=== PATIENT | female | born 1965 | race African-American/Black ===

== ENCOUNTER 2018-10-24 11:37 | Emergency (ER) | payer SELFPAY ==
[2018-10-24 12:35] LABS: Absolute Monocytes 0.5 K/uL (0.1-1.3); Absolute Neutrophil 5.1 K/uL (1.8-8.0); Basophils % 1.2 % (0-1.3)
[2018-10-24 12:48] LABS: Absolute Lymphocytes (CBC) 2.6 K/uL (0.7-4.9); Eosinophils % 5.1 % (0-4.4); Hematocrit 40.1 % (36.0-45.0); Lymphocytes % 29.6 % (15.3-44.8); MPV 9.4 fL (7.6-11.3); Monocytes % 5.9 % (3.3-12.3); RBC Red Blood Cell Count 4.77 M/uL (3.86-4.86)
[2018-10-24 13:01] LABS: Urine Blood 2+ (NEG); Urine Glucose NEGATIVE (NEG); Urine Protein NEGATIVE (NEG); Urine Specific Gravity 1.015 (1.005-1.030); Urine pH 6.5 (5.0-7.0)
[2018-10-24 13:06] LABS: BUN Blood Urea Nitrogen 13 mg/dL (7-18); Bicarbonate 31 mmol/L (21-32); Glucose Level 158 mg/dL (74-106); HDL Cholesterol 71 mg/dL (40-60); LDL Cholesterol, Calculated 131 (<130); Magnesium 2.1 mg/dL (1.8-2.4); Potassium 3.6 mmol/L (3.5-5.1); Sodium Level 140 mmol/L (136-145)
--- NOTE | 2018-10-24 14:48 | ER ---
Nurse's Notes [facility] Name: Soraya Shay Age: 53 yrs Sex: Female : 1965 Arrival Date: 10/24/2018 Time: 11:46 Bed 13 Private MD: Diagnosis: Radiculopathy, cervical region;Hyperlipidemia, unspecified;Hypertension secondary to other renal disorders Presentation: 10/24 11:47 Presenting complaint: Patient states: For several months now I have had numbness and sg heaviness to the left arm the left buttocks and the left leg, it comes and goes, does not have numbness to the face but reports mild swelling to the check and neck with nasal drainage and cough as well, no visual changes, no weakness reported, pt states that she has recently started taking baby aspirin 81 mg every night along with her normal lisinopril 20 mg daily. Transition of care: patient was not received from another setting of care. Onset of symptoms was October 24, 2018. Risk Assessment: Do you want to hurt yourself or someone else? Patient reports no desire to harm self or others. Initial Sepsis Screen: Does the patient meet any 2 criteria? No. Patient's initial sepsis screen is negative. Does the patient have a suspected source of infection? No. Patient's initial sepsis screen is negative. Care prior to arrival: None. 11:47 Method Of Arrival: Ambulatory 11:47 Acuity: DARVIN 3 sg INVENTORY MANAGEMENT SPECIALIST: 14:56 LMP N/A - ss Historical: - Allergies: 11:51 No Known Allergies; sg - Home Meds: 11:51 Aspirin Oral [Active]; lisinopril 20 mg Oral tab 1 tab once daily [Active]; sg - PMHx: 11:51 Hypertension; sg - PSHx: 11:51 Tubal ligation; sg - Immunization history:: Adult Immunizations up to date. - Social history:: Smoking status: Patient/guardian denies using tobacco. - Ebola Screening: : Patient negative for fever greater than or equal to 101.5 degrees Fahrenheit, and additional compatible Ebola Virus Disease symptoms Patient denies exposure to infectious person Patient denies travel to an Ebola-affected area in the 21 days before illness onset No symptoms or risks identified at this time. Screenin:57 Abuse screen: Denies threats or abuse. Denies injuries from another. Nutritional ss screening: No deficits noted. Tuberculosis screening: Never had TB. Fall Risk None identified. Assessment: 11:47 General: Appears in no apparent distress. comfortable, Behavior is calm, cooperative. rb1 Neuro: Level of Consciousness is awake, alert, obeys commands, Oriented to person, place, time, situation. Neuro: Reports numbness in left arm and left leg. Cardiovascular: Capillary refill < 3 seconds is brisk in bilateral fingers. Respiratory: Airway is patent Respiratory effort is even, unlabored, Respiratory pattern is regular, symmetrical. GI: No signs and/or symptoms were reported involving the gastrointestinal system. : No signs and/or symptoms were reported regarding the genitourinary system. Derm: Skin is dry, Skin is normal, Skin temperature is warm. 11:47 Pain: Complains of pain in left leg and left arm Pain currently is 4 out of 10 on a rb1 pain scale. 12:45 Reassessment: Patient appears in no apparent distress at this time. Patient and/or rb1 family updated on plan of care and expected duration. Pain level reassessed. Patient is alert, oriented x 3, equal unlabored respirations, skin warm/dry/pink. 13:44 Reassessment: Patient appears in no apparent distress at this time. No changes from rb1 previously documented assessment. 14:44 Reassessment: Patient appears in no apparent distress at this time. Patient and/or rb1 family updated on plan of care and expected duration. Pain level reassessed. Patient is alert, oriented x 3, equal unlabored respirations, skin warm/dry/pink. Vital Signs: 11:51 BP 144 / 82; Pulse 87; Resp 16; Temp 98.2; Pulse Ox 100% on R/A; Pain 2/10; sg 12:50 BP 148 / 77; Pulse 74; Resp 14; Temp 98.3(O); Pulse Ox 99% on R/A; Pain 2/10; rb1 13:50 BP 122 / 64; Pulse 75; Resp 12; Temp 98.4(O); Pulse Ox 100% on R/A; Pain 1/10; rb1 14:40 BP 126 / 71; Pulse 69; Resp 15; Temp 98.5(O); Pulse Ox 100% on R/A; Pain 1/10; rb1 ED Course: 11:46 Patient arrived in ED. sg 11:48 Gerson Mattson MD is Attending Physician. ps1 11:48 Ghislaine Chirinos, RN is Primary Nurse. rb1 11:49 Triage completed. sg 11:49 Arm band placed on. sg 12:23 Inserted saline lock: 20 gauge in right antecubital area, using aseptic technique. la1 Blood collected. 12:37 EKG done, by ED staff, reviewed by Gerson Mattson MD. 3 12:47 Urine collected: clean catch specimen, cloudy. 3 14:56 No provider procedures requiring assistance completed. IV discontinued, intact, ss bleeding controlled, No redness/swelling at site. Pressure dressing applied. 14:57 Patient has correct armband on for positive identification. Bed in low position. Call ss light in reach. Administered Medications: No medications were administered Point of Care Testing: Blood Glucose: 12:23 Blood Glucose: 184 mg/dL; la1 Ranges: Outcome: 14:47 Discharge ordered by MD. ps1 14:56 Discharged to home ambulatory, with family. 14:56 Condition: good 14:56 Discharge instructions given to patient, family, Instructed on discharge instructions, follow up and referral plans. medication usage, Demonstrated understanding of instructions, follow-up care, medications, Prescriptions given X 3. 14:57 Patient left the ED. Signatures: Roger Donnelly RN NATALIO Dina Suggs RN RN Azael Cade RN RN la1 Ghislaine Chirinos, RN RN [facility] Holly Gordon 3 Gerson Mattson MD MD ps1
--- NOTE | 2018-10-24 14:48 | EDPHYS ---
Physician Documentation [facility] Name: Soraya Shay Age: 53 yrs Sex: Female : 1965 Arrival Date: 10/24/2018 Time: 11:46 Bed 13 Private MD: ED Physician Gerson Mattson HPI: 10/24 12:17 This 53 yrs old Black Female presents to ER via Ambulatory with complaints of Numbness ps1 - for several months to the left arm and left buttocks and left leg. 12:17 Patient states that for 2 months the patient has non-specific pain localized to left ps1 arm that stops at the wrist and lower back pain that radiates down the left leg. The pain is improved with extending her arm or raising the arm over her head. The patient states that she takes Excedrin regularly as well as taking aspirin. She states that she usually takes it for migraines and works. She has no focal neurologic deficits. She has FROM and no weakness. Hx of HTN and treated with lisinopril. . CLINICAL ADVISOR: 14:56 LMP N/A - ss Historical: - Allergies: 11:51 No Known Allergies; sg - Home Meds: 11:51 Aspirin Oral [Active]; lisinopril 20 mg Oral tab 1 tab once daily [Active]; sg - PMHx: 11:51 Hypertension; sg - PSHx: 11:51 Tubal ligation; sg - Immunization history:: Adult Immunizations up to date. - Social history:: Smoking status: Patient/guardian denies using tobacco. - Ebola Screening: : Patient negative for fever greater than or equal to 101.5 degrees Fahrenheit, and additional compatible Ebola Virus Disease symptoms Patient denies exposure to infectious person Patient denies travel to an Ebola-affected area in the 21 days before illness onset No symptoms or risks identified at this time. ROS: 12:17 Constitutional: Negative for fever, chills, and weight loss, Eyes: Negative for injury, ps1 pain, redness, and discharge. 12:17 Cardiovascular: Negative for chest pain, palpitations, and edema, Respiratory: Negative for shortness of breath, cough, wheezing, and pleuritic chest pain, Abdomen/GI: Negative for abdominal pain, nausea, vomiting, diarrhea, and constipation, Back: Negative for injury and pain, MS/Extremity: Negative for injury and deformity, Skin: Negative for injury, rash, and discoloration, Psych: Negative for depression, anxiety, suicide ideation, homicidal ideation, and hallucinations. 12:17 ENT: Positive for nose bleed. 12:17 Neuro: Positive for paresthesia in upper and lower extremity on left. Exam: 12:17 Constitutional: This is a well developed, well nourished patient who is awake, alert, ps1 and in no acute distress. Head/Face: Normocephalic, atraumatic. Eyes: Pupils equal round and reactive to light, extra-ocular motions intact. Lids and lashes normal. Conjunctiva and sclera are non-icteric and not injected. ENT: Nares patent. No nasal discharge, no septal abnormalities noted. Tympanic membranes are normal and external auditory canals are clear. Oropharynx with no redness, swelling, or masses, exudates, or evidence of obstruction, uvula midline. Mucous membranes moist. Neck: Trachea midline, no thyromegaly or masses palpated, and no cervical lymphadenopathy. Supple, full range of motion without nuchal rigidity, or vertebral point tenderness. No Meningismus. Chest/axilla: Normal chest wall appearance and motion. Nontender with no deformity. No lesions are appreciated. Cardiovascular: Regular rate and rhythm. No gallops, murmurs, or rubs. Normal PMI, no JVD. No pulse deficits. Respiratory: Lungs have equal breath sounds bilaterally, clear to auscultation and percussion. No rales, rhonchi or wheezes noted. No increased work of breathing, no retractions or nasal flaring. Abdomen/GI: Soft, non-tender, with normal bowel sounds. No distension or tympany. No guarding or rebound. No evidence of tenderness throughout. MS/ Extremity: Pulses equal, no cyanosis. Neurovascular intact. Full, normal range of motion. Neuro: Awake and alert, GCS 15, oriented to person, place, time, and situation. Cranial nerves II-XII grossly intact. Sensory grossly intact. Psych: Awake, alert, with orientation to person, place and time. Behavior, mood, and affect are within normal limits. Vital Signs: 11:51 BP 144 / 82; Pulse 87; Resp 16; Temp 98.2; Pulse Ox 100% on R/A; Pain 2/10; sg 12:50 BP 148 / 77; Pulse 74; Resp 14; Temp 98.3(O); Pulse Ox 99% on R/A; Pain 2/10; rb1 13:50 BP 122 / 64; Pulse 75; Resp 12; Temp 98.4(O); Pulse Ox 100% on R/A; Pain 1/10; rb1 14:40 BP 126 / 71; Pulse 69; Resp 15; Temp 98.5(O); Pulse Ox 100% on R/A; Pain 1/10; rb1 MDM: 12:17 Patient medically screened. ps1 14:48 Data reviewed: vital signs, nurses notes, lab test result(s), and as a result, I will ps1 discharge patient, Pt to get OP MRI for further evaluation of symptoms. Symptoms > 2 months. Possible remote CVA, MS, radiculopathy. Lipids elevated with high HDL's. Will have patient stop excedrin and take anaprox and robaxin. Stable for discharge. Normal neuro exam. . 10/24 12:14 Order name: Magnesium; Complete Time: 13:11 ps1 10/24 12:14 Order name: Basic Metabolic Panel; Complete Time: 13:11 ps1 10/24 12:14 Order name: CBC with Diff; Complete Time: 12:56 ps1 10/24 12:14 Order name: Lipid Profile; Complete Time: 13:11 ps1 10/24 12:51 Order name: Urine Dipstick--Ancillary (enter results); Complete Time: 13:11 ms 10/24 12:51 Order name: Urine --Ancillary (enter results); Complete Time: 13:11 ms 10/24 12:14 Order name: EKG; Complete Time: 12:14 ps1 10/24 12:14 Order name: Accucheck; Complete Time: 12:23 ps1 10/24 12:14 Order name: Cardiac monitoring; Complete Time: 12:48 ps1 10/24 12:14 Order name: EKG - Nurse/Tech; Complete Time: 12:48 ps1 10/24 12:14 Order name: IV Saline Lock; Complete Time: 12:48 ps1 10/24 12:14 Order name: Labs collected and sent; Complete Time: 12:48 ps1 10/24 12:14 Order name: NPO; Complete Time: 12:48 ps1 10/24 12:14 Order name: O2 Per Protocol; Complete Time: 12:48 ps1 10/24 12:14 Order name: O2 Sat Monitoring; Complete Time: 12:48 ps1 Administered Medications: No medications were administered Point of Care Testing: Blood Glucose: 12:23 Blood Glucose: 184 mg/dL; la1 Ranges: Critical Glucose Levels:Adult <50 mg/dl or >400 mg/dl <40 mg/dl or >180 mg/dl Disposition: 14:49 Chart complete. ps1 Disposition: 10/24/18 14:47 Discharged to Home. Impression: Radiculopathy, cervical region, Hyperlipidemia, unspecified, Hypertension secondary to other renal disorders. - Condition is Stable. - Discharge Instructions: Cervical Radiculopathy, Hypertension, Cholesterol. - Prescriptions for Anaprox DS 550 mg Oral Tablet - take 1 tablet by ORAL route every 12 hours As needed; 20 tablet. Robaxin 500 mg Oral Tablet - take 2 tablet by ORAL route every 6 hours As needed; 40 tablet. Medrol (Adal) 4 mg Oral Tablets, Dose Pack - take 1 tablet by ORAL route as directed - follow package instructions; 1 packet. - Medication Reconciliation Form, Thank You Letter, Antibiotic Education, Prescription Opioid Use form. - Follow up: Private Physician; When: 1 - 2 days; Reason: Further diagnostic work-up, Recheck today's complaints, Continuance of care, Re-evaluation by your physician. Follow up: Emergency Department; When: As needed; Reason: Worsening of condition. - Problem is chronic. - Symptoms are unchanged. Signatures: Dispatcher [employer] EDMS Roger Donnelly RN RN sg Smirch, Shelby, RN RN ss Singer, Phillip, MD MD ps1 Corrections: (The following items were deleted from the chart) 12:14 12:14 Stroke Swallow Screen ordered. ps1 ps1 14:57 14:47 10/24/2018 14:47 Discharged to Home. Impression: Radiculopathy, cervical region; ss Hyperlipidemia, unspecified; Hypertension secondary to other renal disorders. Condition is Stable. Forms are Medication Reconciliation Form, Thank You Letter, Antibiotic Education, Prescription Opioid Use. Follow up: Private Physician; When: 1 - 2 days; Reason: Further diagnostic work-up, Recheck today's complaints, Continuance of care, Re-evaluation by your physician. Follow up: Emergency Department; When: As needed; Reason: Worsening of condition. Problem is chronic. Symptoms are unchanged. ps1
--- NOTE | 2018-10-25 06:09 | EKG ---
Test Date: 2018-10-24 Test Time: 12:36:12 Wool Classer: TREE MEASUREMENT RESULTS: Intervals: Rate: 61 ID: [id number] QRSD: 72 QT: 410 QTc: 412 Eaton: P: 14 ID: [id number] QRS: 64 T: 78 INTERPRETIVE STATEMENTS: Normal sinus rhythm Nonspecific ST and T wave abnormality Abnormal ECG No previous ECG available for comparison Electronically Signed On 10-25-18 06:08:15 CDT by Panchito Bar
== END 2018-10-24 14:57 | disposition home or self-care (01) ==
LOC: ER 11:37
DX: M54.12 Radiculopathy, cervical region (principal); E78.5 Hyperlipidemia, unspecified; I15.1 Hypertension secondary to other renal disorders; M54.5 Low back pain; I10 Essential (primary) hypertension; Z79.82 Long term (current) use of aspirin
CPT/HCPCS: 36415; 80048; 80061; 81003; 81025; 82962; 83735; 85025; 93005; 99284